=== PATIENT | male | born 1985 | race Caucasian/White ===

== ENCOUNTER 2019-09-09 00:44 | Emergency (ER) | payer OTHER ==
[~2019-09-09] VITALS: Ht 177.8 cm; Wt 86.2 kg
[2019-09-09 00:51] VITALS: BP 125/72; Ht 177.8 cm; Wt 86.2 kg
== END 2019-09-09 01:28 | disposition other institution (70) ==
LOC: ED 00:44
DX: Z02.89 Encounter for other administrative examinations (principal)